=== PATIENT | female | born 1960 | race Caucasian/White ===

== ENCOUNTER 2021-05-11 09:29 | Emergency (ER) | payer BC ==
[2021-05-11] MEDS ORDERED: VALIUM 5MG T5 MG/TAB PO (09:51)
[2021-05-11] MEDS ORDERED: VIIBRYD20 MG PO (09:51)
[2021-05-11] MEDS ORDERED: PERCOCET 325 MG1 TA2 PO (09:51)
[2021-05-11] MEDS ORDERED: NORVASC 10MG10 MG PO (09:51)
[2021-05-11] MEDS ORDERED: ROPINIROLE HY0.25 MG PO (09:52)
[2021-05-11] MEDS ORDERED: XTAMPZA ER27 MG PO (09:52)
[2021-05-11] MEDS ORDERED: BISOPROLOL FUMA10 M1 PO (09:52)
[2021-05-11] MEDS ORDERED: DIVALPROEX SOD250 MG PO (09:52)
[2021-05-11] MEDS ORDERED: LEVOTHYROXIN0.075 MG PO (09:52)
[2021-05-11] MEDS ORDERED: NEURONTIN300 MG/CAP (09:52)
[2021-05-11] MEDS ORDERED: KETOROLAC10 MG PO (10:58)
[2021-05-11] MEDS ORDERED: CLEOCIN HCL150 M1 PO (10:58)
[2021-05-11 11:04] VITALS: BP 125/88
== END 2021-05-11 11:04 | disposition home or self-care (01) ==
LOC: ED 09:29
DX: K04.7 Periapical abscess without sinus (principal); I10 Essential (primary) hypertension; F41.9 Anxiety disorder, unspecified; F32.9 Major depressive disorder, single episode, unspecified; G89.29 Other chronic pain; M54.2 Cervicalgia; M54.9 Dorsalgia, unspecified; G25.81 Restless legs syndrome; F17.200 Nicotine dependence, unspecified, uncomplicated; Z79.891 Long term (current) use of opiate analgesic; Z79.899 Other long term (current) drug therapy
CPT/HCPCS: J1885

== ENCOUNTER 2025-01-31 16:39 | Emergency (ER) | payer OTHER ==
[~2025-01-31] VITALS: Ht 167.6 cm; Wt 59.8 kg
[~2025-01-31 16:39] MED LIST: BISOPROLOL FUMA10 M1 PO; CLEOCIN HCL150 M1 PO; DIVALPROEX SOD250 MG PO; KETOROLAC10 MG PO; LEVOTHYROXIN0.075 MG PO; NEURONTIN300 MG/CAP; NORVASC 10MG10 MG PO; PERCOCET 325 MG1 TA2 PO; ROPINIROLE HY0.25 MG PO; VALIUM 5MG T5 MG/TAB PO; VIIBRYD20 MG PO; XTAMPZA ER27 MG PO
[2025-01-31] MEDS ORDERED: NS 1,000 ML IV ONE (17:00)
[2025-01-31 17:12] LABS: BASO # 0.02 K/mm3 (0.02-0.10); EOS # 0.02 K/mm3 (0.04-0.40); EOS % 0.1 % (1.0-5.0); HEMATOCRIT 49.9 % (37.0-47.0); HEMOGLOBIN 16.6 g/dL (12.5-16.0); LYMPH# 2.07 K/mm3 (1.50-4.00); MEAN CELL VOLUME 91 fl (78-100); MEAN CORPUSCULAR HEMOGLOBIN 30 pg (27-31); MEAN CORPUSCULAR HGB CONC 33 g/dL (33-37); MONO # 0.98 K/mm3 (0.20-0.80); NEU # 13.88 K/mm3 (1.40-6.50); PLATELET COUNT 295 K/mm3 (130-400); RED BLOOD COUNT 5.48 M/mm3 (4.10-5.30); RED CELL DISTRIBUTION WIDTH 18.1 % (11.5-14.5)
[2025-01-31 17:20] LABS: CALCIUM 10.6 mg/dL (8.3-10.5)
[2025-01-31 17:22] LABS: TOTAL PROTEIN 9.9 g/dL (6.2-8.1)
[2025-01-31 17:23] LABS: TOTAL BILIRUBIN 0.6 mg/dL (0.2-1.2)
[2025-01-31] MEDS ORDERED: Piperacillin/Tazobactam Sodium 3.375 GM in NS 100 ML IV ONE (18:45)
[2025-01-31] MEDS ORDERED: AMOXICILLIN AND1 TA2 PO (18:47)
[2025-01-31] MEDS ORDERED: PHENERGAN 25 TA25 MG PO (18:47)
[2025-01-31 19:42] VITALS: BP 130/84
== END 2025-01-31 19:53 | disposition home or self-care (01) ==
LOC: ED 16:39
PROVIDERS: Family Medicine
DX: K52.9 Noninfective gastroenteritis and colitis, unspecified (principal)
CPT/HCPCS: J2543; J2765; J7030